=== PATIENT | male | born 1945 | race Caucasian/White ===

== ENCOUNTER 2021-08-22 02:48 | Day surgery (SDC) | payer MEDICARE ==
[2021-08-22] MEDS ORDERED: ONDA8 PO (08:36)
[2021-08-22] MEDS ORDERED: ACET325 PO (08:36)
== END 2021-08-22 11:51 | disposition home or self-care (01) ==
LOC: ATC 02:48
DX: C25.1 Malignant neoplasm of body of pancreas (principal)
CPT/HCPCS: 36430; 86850; 86900; 86901; 86923; J7050; P9016

== ENCOUNTER 2021-09-08 05:56 | Day surgery (SDC) | payer OTHER ==
[~2021-09-08 05:56] MED LIST: ACET325 PO; ONDA8 PO
== END 2021-09-08 11:48 | disposition home or self-care (01) ==
LOC: ATC 05:56
DX: C25.1 Malignant neoplasm of body of pancreas (principal); D61.9 Aplastic anemia, unspecified
CPT/HCPCS: 36430; 86850; 86900; 86901; 86923; J7050; P9016